=== PATIENT | female | born 1980 ===

== ENCOUNTER → 2023-11-06 15:55 | Outpatient (CLI) | payer OTHER, SELFPAY ==
[2023-11-07 13:36] LABS: Candida species Negative (Negative); Gardnerella vaginalis Negative (Negative); Trichomoas vaginalis Negative (Negative)
== END ==
PROVIDERS: PCP Family Medicine; Visit Provider Student in an Organized Health Care Education/Training Program
DX: N89.8 Other specified noninflammatory disorders of vagina (principal); R35.0 Frequency of micturition
CPT/HCPCS: 87086; 87480; 87510; 87660

== ENCOUNTER → 2024-03-02 15:26 | Outpatient (CLI) | payer OTHER, SELFPAY ==
[2024-03-06 19:35] LABS: Latex allergy <0.10 kU/L (Class 0)
== END ==
PROVIDERS: PCP Family Medicine; Referring Provider Physician Assistant; Visit Provider Physician Assistant
DX: T63.461D Toxic effect of venom of wasps, accidental (unintentional), subsequent encounter (principal); Z91.040 Latex allergy status
CPT/HCPCS: 36415; 83520; 86003